=== PATIENT | female | born 1975 | race Hispanic/Latino ===

== ENCOUNTER 2016-10-28 18:23 | Emergency (ER) | payer MEDICARE ==
[2016-10-28] MEDS ORDERED: TORADOL IV ONE (19:37)
[2016-10-28] MEDS ORDERED: MORPHINE IV ONE (19:37)
[2016-10-28] MEDS ORDERED: ZOFRAN IV ONE (19:37)
[2016-10-28 20:18] LABS: Basophils % (Auto) 0.4 % (0.0-1.8); Eosinophils % (Auto) 1.3 % (0.0-4.3); Hematocrit 38.2 % (30.3-42.9); Mean Corpuscular HGB Conc 34 % (30-34); Mean Corpuscular Hemoglobin 29 pg (28-32); Mean Corpuscular Volume 85 fl (79-97); Platelet Count 251 K/mm3 (140-440); Red Blood Count 4.49 M/mm3 (3.65-5.03); Red Cell Distribution Width 13.1 % (13.2-15.2); White Blood Count 9.1 K/mm3 (4.5-11.0)
[2016-10-28 20:29] LABS: INR 1.05 (0.87-1.13)
[2016-10-28 20:40] LABS: Anion Gap 19 mmol/L; Blood Urea Nitrogen 14 mg/dL (7-17); Calcium 8.5 mg/dL (8.4-10.2); Carbon Dioxide 25 mmol/L (22-30); Chloride 101.9 mmol/L (98-107); Creatine Kinase 36 units/L (30-135); Glucose 94 mg/dL (65-100); Potassium 3.5 mmol/L (3.6-5.0); Sodium 142 mmol/L (137-145)
[2016-10-28 20:41] LABS: Creatine Kinase MB < 1.0 ng/mL (0.0-4.0)
--- NOTE | 2016-10-28 20:46 | Cat Scan Report ---
FINAL REPORT PROCEDURE: CT HEAD/BRAIN WO CON TECHNIQUE: Computerized tomography of the head was performed without contrast material. HISTORY: Syncope. Headache COMPARISON: No prior studies are available for comparison. FINDINGS: Skull and scalp: Normal. Paranasal sinuses: Normal. Ventricles and subarachnoid spaces: Normal. Cerebrum: No evidence of hemorrhage, acute infarction or mass . Cerebellum and brainstem: No evidence of hemorrhage, acute infarction or mass. Vasculature: Normal. Comments: None. IMPRESSION: 1. Overall negative CT brain without contrast with no CT evidence of intracranial hemorrhage or edema or shift or infarct or acute finding. 2. If there is continued concern for brain abnormality or unexplained symptoms and further evaluation is still desired, additional diagnostic evaluation advised only if clinically indicated.
--- NOTE | 2016-10-28 21:15 | Cat Scan Report ---
FINAL REPORT PROCEDURE: CT CERVICAL SPINE WO CON TECHNIQUE: Computerized tomography of the cervical spine was performed from the skull base to T1 without contrast material. HISTORY: Cervical neck pain after syncopal episode. COMPARISON: There no prior cervical spine studies to compare FINDINGS: There is no CT evidence of fracture or dislocation in the cervical spine. There is some straightening of the normal cervical lordotic curve which is nonspecific but can be due to muscle spasm or collar placement. Tilt of the cervical spine to the right on the coronal view is probably due to patient positioning. Alignment appears within normal limits otherwise. There is no overall significant degenerative change IMPRESSION: 1. There is no CT evidence of fracture or dislocation. 2. There is some straightening of the normal cervical lordotic curve. 3. If there is continued concern for cervical spine abnormality or unexplained symptoms and further evaluation is still desired, additional diagnostic evaluation advised only if clinically indicated.
--- NOTE | 2016-10-28 21:17 | Emergency Department Report ---
ED Syncope HPI - General Chief Complaint: Fall Stated Complaint: FALL FROM STANDING POSITION Time Seen by Provider: 10/28/16 19:27 Source: patient, family Exam Limitations: no limitations - History of Present Illness Initial Comments: 41-year-old female with a past medical history of GERD, hypertension, migraines , interstitial cystitis, sclerosis and partial hysterectomy presents to the hospital status post syncopal episode. Patient states she started to feel lightheaded with generalized weakness and blurred vision. She attempted to walk outside with her family members and passed out. Daughter is at bedside states patient fell backwards. Patient states she has a headache since the fall. Headache is located in the front in the back and head. She also complains of upper posterior neck pain. Patient has pain on her back as well. No other pain reported she denies chest pain, shortness of breath, nausea, vomiting, diarrhea, melena, hematochezia. - Related Data Allergies/Adverse Reactions: Allergies Penicillins Adverse Reaction (Verified 10/24/13 07:01) Nausea Home Medications: Ambulatory Orders Cyclobenzaprine HCl [Cyclobenzaprine] 7.5 mg PO DAILY 08/02/13 Dicyclomine [Bentyl] 10 mg PO DAILY 08/02/13 Esomeprazole Magnesium [NexIUM] 40 mg PO DAILY 08/02/13 Famotidine [Pepcid] 40 mg PO DAILY 08/02/13 Pentosan (Nf) [Elmiron (Nf)] 100 mg PO BID 08/02/13 traMADol [Ultram 50 MG tab] 50 mg PO Q6H 08/02/13 Albuterol Sulfate [Proair Hfa] 2 puff INHALATION Q6HR PRN 10/24/13 Atorvastatin (Nf) [Lipitor (Nf)] 20 mg PO DAILY 10/24/13 Fluticasone Propionate [Flovent Hfa] 2 puff INHALATION BID 10/24/13 Montelukast [Singulair] 10 mg PO DAILY 10/24/13 ED Review of Systems ROS: Stated complaint: FALL FROM STANDING POSITION Other details as noted in HPI Comment: All other systems reviewed and negative Other: Constitutional: No fevers chills Eyes: No eye pain visual changes ENT: No ear pain or throat pain Neck:as per hpi Respiratory: Denies cough wheezing shortness of breath Cardiovascular: Denies chest pain, palpitations GI: Denies abdominal pain, nausea, vomiting, diarrhea : Denies dysuria Musculoskeletal: Denies back pain, joint swelling Skin: Denies rash, lesions, erythema Neurologic: Denies, numbness, weakness Psychiatric: Denies suicidal ideation, hallucinations ED Past Medical Hx - Past Medical History Previous Medical History?: Yes Hx Hypertension: Yes Hx GERD: Yes Hx Headaches / Migraines: Yes (MIGRANES) Hx Asthma: Yes Additional medical history: interstitial cystitis. MS - Surgical History Past Surgical History?: Yes Additional Surgical History: partial hyst - Social History Smoking Status: Never Smoker Substance Use Type: None - Medications Home Medications: Home Medications Medication Instructions Recorded Confirmed Last Taken Type Cyclobenzaprine HCl 7.5 mg PO DAILY 08/02/13 10/20/13 10/23/13 21:00 History [Cyclobenzaprine] Dicyclomine [Bentyl] 10 mg PO DAILY 08/02/13 10/20/13 10/23/13 21:00 History Esomeprazole Magnesium [NexIUM] 40 mg PO DAILY 08/02/13 10/20/13 10/23/13 History Famotidine [Pepcid] 40 mg PO DAILY 08/02/13 10/20/13 10/23/13 21:00 History Pentosan (Nf) [Elmiron (Nf)] 100 mg PO BID 08/02/13 10/20/13 10/23/13 History traMADol [Ultram 50 MG tab] 50 mg PO Q6H 08/02/13 10/20/13 10/22/13 History Albuterol Sulfate [Proair Hfa] 2 puff INHALATION Q6HR PRN 10/24/13 10/24/1310/14 History Atorvastatin (Nf) [Lipitor (Nf)] 20 mg PO DAILY 10/24/13 10/24/13 10/23/13 History Fluticasone Propionate [Flovent 2 puff INHALATION BID 10/24/13 10/24/13 09:33 History Hfa] Montelukast [Singulair] 10 mg PO DAILY 10/24/13 10/24/13 10/23/13 09:30 History ED Physical Exam - General Limitations: No Limitations - Other Other exam information: General: No limitations, patient is alert in no acute distress Head exam: Atraumatic, normocephalic Eyes exam: Normal appearance, pupils equal reactive to light, extraocular movements intact ENT: Moist mucous membrane, normal oropharynx Neck exam: Normal inspection, full range of motion, midline tenderness C1-C2 area but also tender at the left upper lateral paracervical muscle Respiratory exam: Clear to auscultation bilateral, no wheezes, rales, crackles Cardiovascular: Normal rate and rhythm, normal heart sounds Abdomen: Soft, nondistended, and nontender, with normal bowel sounds, no rebound, or guarding Extremity: Full range of motion normal inspection no deformity Back: Normal Inspection, full range of motion, tenderness along the T and L- spine diffusely Neurologic: Alert, oriented x3, cranial nerves intact, no motor or sensory deficit Psychiatric: normal affect, normal mood Skin: Warm, dry, intact ED Course Vital Signs 10/28/16 10/28/16 10/28/16 18:54 20:00 20:26 Temperature 98.6 F Pulse Rate 84 69 Respiratory 16 18 18 Rate Blood Pressure 153/97 Blood Pressure 153/93 [Left] O2 Sat by Pulse 99 99 100 Oximetry 10/28/16 10/28/16 20:31 23:20 Temperature 97.7 F Pulse Rate 72 Respiratory 18 16 Rate Blood Pressure Blood Pressure 150/92 [Left] O2 Sat by Pulse 100 Oximetry - Reevaluation(s) Reevaluation #1: 10/29/16 00:12 Patient treated in the ED what pain medication and almost daily. Patient reports feeling better but still have some visual dizziness when she opens her eyes this is a first-time described as a room spinning sensation similar to her previous vertigo. She'll be provided meclizine and reassessed 10/29/16 00:13 ED Medical Decision Making - Lab Data Result diagrams: 10/28/16 19:50 10/28/16 19:50 Lab Results 10/28/16 10/28/16 10/28/16 Range/Units 19:50 19:50 19:50 WBC 9.1 (4.5-11.0) K/mm3 RBC 4.49 (3.65-5.03) M/mm3 Hgb 13.0 (10.1-14.3) gm/dl Hct 38.2 (30.3-42.9) % MCV 85 (79-97) fl MCH 29 (28-32) pg MCHC 34 (30-34) % RDW 13.1 L (13.2-15.2) % Plt Count 251 (140-440) K/mm3 Lymph % (Auto) 20.9 (13.4-35.0) % [place] % (Auto) 4.8 (0.0-7.3) % Eos % (Auto) 1.3 (0.0-4.3) % Baso % (Auto) 0.4 (0.0-1.8) % Lymph # 1.9 (1.2-5.4) K/mm3 [place] # 0.4 (0.0-0.8) K/mm3 Eos # 0.1 (0.0-0.4) K/mm3 Baso # 0.0 (0.0-0.1) K/mm3 Seg Neutrophils % 72.6 H (40.0-70.0) % Seg Neutrophils # 6.6 (1.8-7.7) K/mm3 PT 13.6 (12.2-14.9) Sec. INR 1.05 (0.87-1.13) Sodium 142 (137-145) mmol/L Potassium 3.5 L (3.6-5.0) mmol/L Chloride 101.9 (98-107) mmol/L Carbon Dioxide 25 (22-30) mmol/L Anion Gap 19 mmol/L BUN 14 (7-17) mg/dL Creatinine 0.7 (0.7-1.2) mg/dL Estimated GFR > 60 ml/min BUN/Creatinine Ratio 20.00 % Glucose 94 (65-100) mg/dL Calcium 8.5 (8.4-10.2) mg/dL Total Creatine Kinase 36 (30-135) units/L CK-MB (CK-2) < 1.0 (0.0-4.0) ng/mL CK-MB (CK-2) Rel Index 2.7 (0-4) Troponin T < 0.010 (0.00-0.029) ng/mL Urine Color (Yellow) Urine Turbidity (Clear) Urine pH (5.0-7.0) Ur Specific [place] (1.003-1.030) Urine Protein (Negative) mg/dL Urine Glucose (UA) (Negative) mg/dL Urine Ketones (Negative) mg/dL Urine Blood (Negative) Urine Nitrite (Negative) Urine Bilirubin (Negative) Urine Urobilinogen (<2.0) mg/dL Ur Leukocyte Esterase (Negative) Urine WBC (Auto) (0.0-6.0) /HPF Urine RBC (Auto) (0.0-6.0) /HPF U Epithel Cells (Auto) (0-13.0) /HPF Urine Mucus /HPF Urine Opiates Screen Urine Methadone Screen Ur Barbiturates Screen Ur Phencyclidine Scrn Ur Amphetamines Screen U Benzodiazepines Scrn Urine Cocaine Screen U Marijuana (THC) Screen Drugs of Abuse Note 10/28/16 10/28/16 Range/Units 23:41 23:41 WBC (4.5-11.0) K/mm3 RBC (3.65-5.03) M/mm3 Hgb (10.1-14.3) gm/dl Hct (30.3-42.9) % MCV (79-97) fl MCH (28-32) pg MCHC (30-34) % RDW (13.2-15.2) % Plt Count (140-440) K/mm3 Lymph % (Auto) (13.4-35.0) % [place] % (Auto) (0.0-7.3) % Eos % (Auto) (0.0-4.3) % Baso % (Auto) (0.0-1.8) % Lymph # (1.2-5.4) K/mm3 [place] # (0.0-0.8) K/mm3 Eos # (0.0-0.4) K/mm3 Baso # (0.0-0.1) K/mm3 Seg Neutrophils % (40.0-70.0) % Seg Neutrophils # (1.8-7.7) K/mm3 PT (12.2-14.9) Sec. INR (0.87-1.13) Sodium (137-145) mmol/L Potassium (3.6-5.0) mmol/L Chloride (98-107) mmol/L Carbon Dioxide (22-30) mmol/L Anion Gap mmol/L BUN (7-17) mg/dL Creatinine (0.7-1.2) mg/dL Estimated GFR ml/min BUN/Creatinine Ratio % Glucose (65-100) mg/dL Calcium (8.4-10.2) mg/dL Total Creatine Kinase (30-135) units/L CK-MB (CK-2) (0.0-4.0) ng/mL CK-MB (CK-2) Rel Index (0-4) Troponin T (0.00-0.029) ng/mL Urine Color Straw (Yellow) Urine Turbidity Clear (Clear) Urine pH 7.0 (5.0-7.0) Ur Specific [place] 1.005 (1.003-1.030) Urine Protein <15 mg/dl (Negative) mg/dL Urine Glucose (UA) Neg (Negative) mg/dL Urine Ketones Neg (Negative) mg/dL Urine Blood Neg (Negative) Urine Nitrite Neg (Negative) Urine Bilirubin Neg (Negative) Urine Urobilinogen < 2.0 (<2.0) mg/dL Ur Leukocyte Esterase Neg (Negative) Urine WBC (Auto) 1.0 (0.0-6.0) /HPF Urine RBC (Auto) < 1.0 (0.0-6.0) /HPF U Epithel Cells (Auto) 1.0 (0-13.0) /HPF Urine Mucus Few /HPF Urine Opiates Screen Presumptive negative Urine Methadone Screen Presumptive negative Ur Barbiturates Screen Presumptive negative Ur Phencyclidine Scrn Presumptive negative Ur Amphetamines Screen Presumptive negative U Benzodiazepines Scrn Presumptive negative Urine Cocaine Screen Presumptive negative U Marijuana (THC) Screen Presumptive negative Drugs of Abuse Note Disclamer - EKG Data -: EKG Interpreted by Me (sinus rate 74 right axis deviation) - EKG Data When compared to previous EKG there are: previous EKG unavailable - Radiology Data Radiology results: report reviewed Ct Head: No acute findings CT cervical spine: No acute findings Lumbar x-ray: No acute findings Thoracic x-ray: No acute findings - Medical Decision Making Patient complains of symptom improvement. Still has some mild residual dizziness which she states is consistent with her chronic vertigo as she has Antivert at home. Patient offer for admission but states she feels well enough to go home. Outpatient follow-up will be recommended. - Differential Diagnosis fracture, intracranial hemorrhage, anemia, vasovagal, arrhythmia Critical Care Time: No Critical care attestation.: If time is entered above; I have spent that time in minutes in the direct care of this critically ill patient, excluding procedure time. ED Disposition Clinical Impression: Syncope, Vertigo, Multiple sclerosis Disposition: DISCHARGED TO HOME OR SELFCARE Is pt being admited?: No Does the pt Need Aspirin: No Condition: Stable Instructions: Syncope (ED), Vertigo (ED) Additional Instructions: Follow-up with your primary care doctor for further evaluation. Please return to the hospital symptoms worsen. Continue your meclizine as needed for vertigo Referrals: PRIMARY CARE, [Primary Care Provider] - 2-3 Days Time of Disposition: 01:05
[2016-10-28] MEDS ORDERED: NACL 0.9% 1000 ML 1,000 ML IV ONE (22:10)
--- NOTE | 2016-10-28 22:49 | XRay Report ---
FINAL REPORT PROCEDURE: XR SPINE LUMBOSACRAL THREE VIEW TECHNIQUE: Lumbar spine radiographs, including AP, lateral, and lumbosacral spot views. CPT 76808 HISTORY: Lumbar low back pain after fall status post syncopal episode. COMPARISON: No prior studies are available for comparison. FINDINGS: Alignment: Normal. Vertebral body heights/Disk spaces: Normal. Fracture(s): None. Facets: Normal. Bone mineralization: Normal. IMPRESSION: 1. There is no plain film evidence of fracture or dislocation or acute finding in the lumbar spine. 2. Thoracic spine series dictated separately. .
--- NOTE | 2016-10-28 23:00 | XRay Report ---
FINAL REPORT PROCEDURE: XR SPINE THORACIC TWO VIEWS TECHNIQUE: Thoracic spine radiographs, including AP and lateral projections. CPT 97700 HISTORY: Thoracic spine back pain after fall status post syncopal episode. COMPARISON: No prior studies are available for comparison. FINDINGS: Alignment: There is very minimal curvature of the upper lumbar spine to the left on the frontal view. Alignment appears normal otherwise.. Vertebral body height: Normal . Disk spaces: Normal . Fracture(s): None . Bone mineralization: Normal . IMPRESSION: 1. There is no plain film evidence of fracture or dislocation or acute finding in the lumbar spine. There is very minimal curvature of upper lumbar spine to the left. 2. Lumbar spine series dictated separately.
[2016-10-28 23:44] LABS: Urine Drugs of Abuse Note Disclamer
[2016-10-28 23:55] LABS: Bilirubin,Urine NEG (Negative); Blood,Urine NEG (Negative); Ketones,Urine NEG (Negative); Leukocyte Esterase,Urine NEG (Negative); Mucus,Urine FEW /HPF; Nitrite,Urine NEG (Negative); Protein,Urine <15 mg/dL mg/dL (Negative); Urobilinogen,Urine < 2.0 mg/dL (<2.0)
[2016-10-29 00:04] LABS: RBC,Urine < 1.0 /HPF (0.0-6.0)
[2016-10-29] MEDS ORDERED: ANTIVERT PO ONE (00:13)
[2016-10-29 01:29] VITALS: BP 132/85
== END 2016-10-29 01:05 | disposition home or self-care (01) ==
LOC: ED 18:23
DX: R55 Syncope and collapse (principal); G35 Multiple sclerosis; R42 Dizziness and giddiness; I10 Essential (primary) hypertension; K21.9 Gastro-esophageal reflux disease without esophagitis; G43.909 Migraine, unspecified, not intractable, without status migrainosus; J45.909 Unspecified asthma, uncomplicated
CPT/HCPCS: 36415; 70450; 72070; 72100; 72125; 80048; 80307; 81001; 82550; 82553; 84484; 85025; 85610; 93005; 93010; 96361; 96374; 99285; J1885; J7030; J2270; J2405

== ENCOUNTER 2017-11-23 12:43 | Outpatient (CLI) | payer MEDICARE ==
--- NOTE | 2017-11-23 15:40 | Cat Scan Report ---
CT ABDOMEN PELVIS WITHOUT CONTRAST: HISTORY: Interstitial cystitis without hematuria. COMPARISON: Report from a CT abdomen pelvis with contrast dated 09/30/13. TECHNIQUE: Helical CT in 1.25mm intervals without IV contrast. Sagittal and coronal reconstructions. FINDINGS: Lung bases: Normal. Liver: Normal. Biliary system: Normal. Pancreas: Normal. Spleen: Normal. Kidneys/ureters/bladder: Both kidneys are normal size, position and attenuation. No focal renal lesion, nephrolithiasis or hydronephrosis. 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 The bladder is unremarkable. No evidence for bladder wall thickening or filling defect. No ureterocele identified. Adrenal glands: Normal. Aorta: Normal. Intestines: Unremarkable given no oral contrast was administered. Appendix: Normal. Pelvic viscera: Hysterectomy changes are suspected. The ovaries are not confidently identified. Correlate with surgical history. Ascites: None. Adenopathy: None. Musculoskeletal: Normal. IMPRESSION: Essentially unremarkable exam. The bladder appears normal on noncontrast CT. 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 Hysterectomy.
== END 2017-11-23 12:44 | disposition home or self-care (01) ==
LOC: CT 12:43
PROVIDERS: ATTEND Urology
DX: N30.10 Interstitial cystitis (chronic) without hematuria (principal); I10 Essential (primary) hypertension; J45.909 Unspecified asthma, uncomplicated; E78.00 Pure hypercholesterolemia, unspecified; Z90.710 Acquired absence of both cervix and uterus
CPT/HCPCS: 74176

== ENCOUNTER 2017-12-14 09:36 | Day surgery (SDC) | payer MEDICARE ==
[~2017-12-14 09:36] MED LIST: LACTATED RINGERS 1,000 ML IV SCH; VERSED IV NR
--- NOTE | 2017-12-14 11:57 | Post Operative Note ---
Date of procedure: 12/14/17 Pre-op diagnosis: IC Post-op diagnosis: same Findings: chronic inflam Procedure: cysto hydrodidstension Anesthesia: GETA Surgeon: ANDREW HUNTLEY Estimated blood loss: minimal Pathology: list Specimen disposition: to lab Condition: stable Disposition: PACU (bladder)
--- NOTE | 2017-12-14 11:59 | Discharge Summary ---
Short Stay Discharge Plan Activity: other (no straining ) Weight Bearing Status: Full Weight Bearing Diet: regular, low fat, low salt Special Instructions: other (inc fluids ) Follow up with: DONTAE DELUNA MD [Primary Care Provider] - 7 Days ANDREW HUNTLEY MD [Staff Physician] - 14 Days
[2017-12-14] MEDS ORDERED: SUBLIMAZE ONE (12:14)
[2017-12-14] MEDS ORDERED: XYLOCAINE MPF 2% ONE (12:14)
[2017-12-14] MEDS ORDERED: DIPRIVAN 10 MG/ML IV ONE (12:15)
--- NOTE | 2017-12-14 12:16 | Anesthesia Day of Surgery ---
Anesthesia Day of Surgery - Day of Surgery Patient Examined: Yes Patient H&P Reviewed: Yes Patient is NPO: Yes
--- NOTE | 2017-12-14 12:16 | Anesthesia Consultation ---
Anesthesia Consult and Med Hx Date of service: 12/14/17 - Airway Anesthetic Teeth Evaluation: Good ROM Head & Neck: Adequate Mental/Hyoid Distance: Adequate Mallampati Class: Class II Intubation Access Assessment: Probably Good - Pulmonary Exam CTA: Yes - Cardiac Exam Cardiac Exam: RRR - Pre-Operative Health Status ASA Pre-Surgery Classification: ASA3 Proposed Anesthetic Plan: General - Pulmonary Hx Smoking: No Hx Asthma: Yes (DAILY INHALERS) Hx Sleep Apnea: No (JEANNIE PRE SCREEN LOW RISK) - Cardiovascular System Hx Hypertension: Yes (OFF MEDS X 2 WEEKS DUE TO RECENT LOW BP) Hx Valvular Heart Disease: Yes (double leaflet Aortic Valve with some AI. Normal EF.) Hx Heart Murmur: Yes - Central Nervous System Hx Back Pain: Yes (NECK AND BACK PAIN- CHRONIC PAIN) - Gastrointestinal Hx Ulcer: Yes (h/o stomach ulcer) Hx Gastroesophageal Reflux Disease: Yes - Hematic Hx Anemia: Yes - Other Systems Hx Cancer: No - Additional Comments Anesthesia Medical History Comments: MS on steroids. Took last night as scheduled
[2017-12-14] MEDS ORDERED: PEPCID IV ONE (12:17)
[2017-12-14] MEDS ORDERED: PEPCID IV NR (12:30)
[2017-12-14] MEDS ORDERED: LEVAQUIN 250MG/50ML 250 MG/50 ML BAG IV ONE (12:40)
[2017-12-14] MEDS ORDERED: WATER FOR IRRIG STERILE IR ONE (12:50)
[2017-12-14] MEDS: DILAUDID IV PRN ×2 (13:07→13:19)
--- NOTE | 2017-12-14 14:13 | Post Anesthesia Evaluation ---
- Post Anesthesia Evaluation Patient Participated: Yes Airway Patent: Yes Stable Respiratory Function: Yes Nausea/Vomiting: No Temp > 96.8F: Yes Pain Manageable: Yes Adequeate Hydration: Yes Anesthesia Complications: No
--- NOTE | 2017-12-14 14:17 | Fluoroscopy Report ---
Retrograde pyelogram: Interstitial cystitis. Contrast was injected into each distal ureter. There is good filling of both ureters and intrarenal collecting systems. No filling defects or deformity is identified. 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
[2017-12-14 14:26] VITALS: BP 110/74
--- NOTE | 2017-12-14 20:28 | Operative Report ---
PREOPERATIVE DIAGNOSIS: Interstitial cystitis. POSTOPERATIVE DIAGNOSES: Interstitial cystitis with minimal residual. PROCEDURE: Cystoscopy, hydrodistention, biopsy, fulguration. SURGEON: Pedrito Rivas MD ANESTHESIA: General. FINDINGS: This is a woman with chronic pelvic pain, had been on Elmiron for interstitial cystitis for followup cystoscopy. DESCRIPTION OF PROCEDURE: The patient brought to the operating room and placed on the operating table. Following induction of anesthesia, placed in lithotomy position, prepped and draped in usual sterile fashion. Exam was basically unremarkable. She has a cystoscopy, which showed a normal epithelium. Clear efflux from each orifice. At this point, retrograde showed bifid system on the left. No persistent filling defects. Small area of erythema and glomerulations after hydrodistention, tolerated 600 mL. His biopsy, the patient tolerated the procedure well. Nothing looked suspicious, brought to recovery in stable condition. JOB# [id number] [id number]/DIVYA
== END 2017-12-14 09:37 | disposition home or self-care (01) ==
LOC: OR 09:36
PROVIDERS: ATTEND Urology
DX: N30.11 Interstitial cystitis (chronic) with hematuria (principal); I10 Essential (primary) hypertension; J45.909 Unspecified asthma, uncomplicated; K21.9 Gastro-esophageal reflux disease without esophagitis; Z88.0 Allergy status to penicillin; Z88.5 Allergy status to narcotic agent
CPT/HCPCS: 52204; 52260; 74420; 88305; A4217; C1758; J1170; J1956; J2250; J2704; J3010; J7120; Q9967